=== PATIENT | female | born 1975 | race Caucasian/White ===

== ENCOUNTER → 2016-09-15 | Outpatient (CLI) | payer BC ==
[~2016-09-15] MED LIST: ASPI81TA82 PO; PRENCAP6 PO
== END ==
LOC: HPND 12:02
PROVIDERS: ATTEND Obstetrics & Gynecology
DX: O35.1XX0 Maternal care for (suspected) chromosomal abnormality in fetus, not applicable or unspecified (principal)
CPT/HCPCS: 76811

== ENCOUNTER → 2016-10-13 | Outpatient (CLI) | payer BC | LOC: HPND 09:27 | PROVIDERS: ATTEND Obstetrics & Gynecology | DX: O09.522 Supervision of elderly multigravida, second trimester (principal); O35.8XX0 Maternal care for other (suspected) fetal abnormality and damage, not applicable or unspecified; O28.3 Abnormal ultrasonic finding on antenatal screening of mother; Z3A.00 Weeks of gestation of pregnancy not specified | CPT/HCPCS: 59000; 76816; 76825; 76827; 76946; 93325 ==

== ENCOUNTER → 2016-11-10 | Outpatient (CLI) | payer BC | LOC: HPND 09:38 | PROVIDERS: ATTEND Obstetrics & Gynecology | DX: O43.192 Other malformation of placenta, second trimester (principal); O35.8XX0 Maternal care for other (suspected) fetal abnormality and damage, not applicable or unspecified; O09.522 Supervision of elderly multigravida, second trimester | CPT/HCPCS: 76816 ==

== ENCOUNTER → 2016-12-08 | Outpatient (CLI) | payer BC | LOC: HPND 09:02 | PROVIDERS: ATTEND Obstetrics & Gynecology | DX: O09.523 Supervision of elderly multigravida, third trimester (principal); O35.1XX0 Maternal care for (suspected) chromosomal abnormality in fetus, not applicable or unspecified; O28.0 Abnormal hematological finding on antenatal screening of mother; O43.193 Other malformation of placenta, third trimester | CPT/HCPCS: 76816 ==

== ENCOUNTER 2017-02-04 12:13 | Inpatient (IN) | payer BC ==
[2017-02-04] VITALS (51 sets, daily range): BP systolic 109–160; BP diastolic 52–93; PULSE 65–80; RESP 17–18; TEMP 98–99.1
[2017-02-04] MEDS ORDERED: LIDOCAINE HCL 1% 50 ML VIAL INFIL PRN (13:00)
[2017-02-04] MEDS ORDERED: MINERAL OIL 10 ML VIAL TOPICAL PRN (13:00)
[2017-02-04] MEDS ORDERED: LACTATED RINGER'S 1000 ML INJ 1,000 ML IV PRN (13:00)
[2017-02-04] MEDS ORDERED: SODIUM CHLORID 0.9% 500 ML INJ 500 ML IV PRN (13:00)
[2017-02-04] MEDS ORDERED: OXYTOCIN 30 UNITS-500ML PREMIX 500 ML IV SCH (13:00)
[2017-02-04] MEDS ORDERED: CITRIC ACID-SODIUM CITRATE LIQ 30 ML UDC PO SCH (13:00)
[2017-02-04] MEDS ORDERED: LIDOCAINE HCL 1% 50 ML VIAL I-DERMAL PRN (13:00)
[2017-02-04] MEDS ORDERED: OXYTOCIN 30 UNITS-500ML PREMIX 500 ML IV ONE (13:00)
[2017-02-04] MEDS: LACTATED RINGER'S 1000 ML INJ 1,000 ML IV SCH ×3 (13:00→23:48)
--- NOTE | 2017-02-04 13:09 | HHI.HP ---
HPI Chief Complaint Induction for oligo Date Seen: Feb 04, 2017 Time Seen: 13:00 Travel History International Travel<30 Days: No Contact w/Intl Traveler<30Days: No Known Affected Area: No History of Present Illness HPI 41 yo at 38 weeks induction with ENMANUEL at 3.6. She is doing well Weeks Gestation: 38 Para: 1 : 2 Last Menstrual Period: Feb 04, 2017 History Past Medical History Medical History: Denies Significant Hx Past Surgical History Surgical History: No Previous Surgery Family History Family History: Negative Social History Alcohol Use: No Tobacco Use: No Substance Abuse: No Allergies-Medications (Allergen,Severity, Reaction): Coded Allergies: No Known Allergies (Unverified Adverse Reaction, Unknown, 02/04/17) Home Meds Reported Medications Aspirin (Aspir-81) 81 Mg Tab, 81 MG PO DAILY, TAB 07/10/15 Mv & Min W/Fe Fumarat ( 1) Cap, 1 CAP PO DAILY, CAP 07/10/15 Review of Systems Except as stated in HPI: all other systems reviewed are Neg Physical Exam Narrative GENERAL: Well-nourished, well-developed patient. SKIN: Warm and dry. HEAD: Normocephalic and atraumatic. EYES: No scleral icterus. No injection or drainage. ENT: No nasal drainage noted. Mucous membranes pink. Airway patent. NECK: Supple, trachea midline. No JVD. CARDIOVASCULAR: Regular rate and rhythm without murmurs, gallops, or rubs. RESPIRATORY: Breath sounds equal bilaterally. No accessory muscle use. BREASTS: Bilateral exam showed no masses , no retractions, no nipple discharge. ABDOMEN/GI: Abdomen soft, non-tender, bowel sounds present, no rebound, no guarding Gravid to 38 weeks size Fundal Height: [-] GENITOURINARY: External Genitalia: intact and normal in appearance BUS glands: [-] Cervix: [-] Dilatation: 2 Effacement: 80 Station: [-] Presentation: vtx Membranes: [intact Uterine Contractions: [-] FHT's: Category: 1 Baseline: [-] Reactive: [-] Variability: [-] Decels: [-] EXTREMITIES: No cyanosis or edema. BACK: Nontender without obvious deformity. No CVA tenderness. NEUROLOGICAL: Awake and alert. Motor and sensory grossly within normal limits. Five out of 5 muscle strength in all muscle groups. Normal speech. Caprini VTE Risk Assessment Caprini VTE Risk Assessment: No/Low Risk (score <= 1) Caprini Risk Assessment Model Point Value = 1 Point Value = 2 Point Value = 3 Point Value = 5 Age 41-60 Minor surgery BMI > 25 kg/m2 Swollen legs Varicose veins or History of unexplained or recurrent spontaneous Oral contraceptives or hormone replacement Sepsis (< 1 month) Serious lung disease, including pneumonia (< 1 month) Abnormal pulmonary function Acute myocardial infarction Congestive heart failure (< 1 month) History of inflammatory bowel disease Medical patient at bed rest Age 61-74 Arthroscopic surgery Major open surgery (> 45 min) Laparoscopic surgery (> 45 min) Malignancy Confined to bed (> 72 hours) Immobilizing plaster cast Central venous access Age >= 75 History of VTE Family history of VTE Factor V Leiden Prothrombin [id number] Lupus anticoagulant Anticardiolipin antibodies Elevated serum homocysteine Heparin-induced thrombocytopenia Other congenital or acquired thrombophilia Stroke (< 1 month) Elective arthroplasty Hip, pelvis, or leg fracture Acute spinal cord injury (< 1 month) Prophylaxis Regimen Total Risk Factor Score Risk Level Prophylaxis Regimen 0-1 Low Early ambulation 2 Moderate Order ONE of the following: *Sequential Compression Device (SCD) *Heparin 5000 units SQ BID 3-4 Higher Order ONE of the following medications: *Heparin 5000 units SQ TID *Enoxaparin/Lovenox 40 mg SQ daily (WT < 150 kg, CrCl > 30 mL/min) *Enoxaparin/Lovenox 30 mg SQ daily (WT < 150 kg, CrCl > 10-29 mL/min) *Enoxaparin/Lovenox 30 mg SQ BID (WT < 150 kg, CrCl > 30 mL/min) AND/OR *Sequential Compression Device (SCD) 5 or more Highest Order ONE of the following medications: *Heparin 5000 units SQ TID (Preferred with Epidurals) *Enoxaparin/Lovenox 40 mg SQ daily (WT < 150 kg, CrCl > 30 mL/min) *Enoxaparin/Lovenox 30 mg SQ daily (WT < 150 kg, CrCl > 10-29 mL/min) *Enoxaparin/Lovenox 30 mg SQ BID (WT < 150 kg, CrCl > 30 mL/min) AND *Sequential Compression Device (SCD) Data Data Vital Signs Reviewed: Yes Orders Orders Admit To Inpatient (02/04/17 ) Code Status (02/04/17 13:00) Vital Signs (Adult) .Per protocol (02/04/17 13:00) Heart (02/04/17 13:00) Amnioinfusion (02/04/17 13:00) Urinary Catheter Management .ONCE (02/04/17 13:00) Diet Liquid (02/04/17 Lunch) Lactated Ringer's 1000 Ml Inj (Lr 1000 M (02/04/17 13:00) Lactated Ringer's 1000 Ml Inj (Lr 1000 M (02/04/17 13:00) Sodium Chlorid 0.9% 500 Ml Inj (Ns 500 M (02/04/17 13:00) Sodium Chlor 0.9% 1000 Ml Inj (Ns 1000 M (02/04/17 13:20) Lidocaine 1% Inj (50 Ml) (Xylocaine 1% I (02/04/17 13:00) Citric Acid-Sodium Citrate Liq (Bicitra (02/04/17 13:00) Fentanyl Inj (Fentanyl Inj) (02/04/17 13:00) Fentanyl Inj (Fentanyl Inj) (02/04/17 13:00) Complete Blood Count With Diff (02/04/17 13:00) Hold Clot (02/04/17 13:00) Abo/Rh Blood Type (02/04/17 13:00) Urinalysis - C+S If Indicated (02/04/17 13:00) Drug Screen, Random Urine (02/04/17 13:00) Resp Oxygen Non Rebreathe Mask (02/04/17 ) ^ Epidural / Intrathecal Infus (02/04/17 13:00) Oxytocin 30 Units-500ml Premix (Pitocin (02/04/17 13:00) Lidocaine 1% Inj (50 Ml) (Xylocaine 1% I (02/04/17 13:00) Light Mineral Oil (Muri-Lube Oil) (02/04/17 13:00) Inpatient Certification (02/04/17 ) Specimen To Be Collected PRN (02/04/17 13:00) Specimen To Be Collected PRN (02/04/17 13:00) ^ Non Stress Test (02/04/17 13:00) Response To Medication .Post New Med Administration, Reaction (02/04/17 13:00) ^ Discontinue Medication (02/04/17 13:00) Oxytocin 30 Units-500ml Premix (Pitocin (02/04/17 13:00) Group B Strep: Negative Assessment/Plan Problem List: (1) 38 weeks gestation of ICD Codes: Z3A.38 - 38 weeks gestation of (2) Oligohydramnios ICD Codes: O41.00X0 - Oligohydramnios, unspecified trimester, not applicable or unspecified Julius Diaz MD Feb 04, 2017 13:09
[2017-02-04 13:20] LABS: AUTOMATED NEUTROPHIL # 7.4 TH/MM3 (1.8-7.7); BASOPHIL % 0.3 % (0.0-2.0); EOSINOPHIL # 0.1 TH/MM3 (0-0.4); EOSINOPHIL % 0.8 % (0.0-4.0); HEMATOCRIT 30.7 % (35.0-46.0); HEMOGLOBIN 10.8 GM/DL (11.6-15.3); LYMPH % 21.1 % (9.0-44.0); LYMPHOCYTE # 2.2 TH/MM3 (1.0-4.8); MEAN CELL VOLUME 91.4 FL (80.0-100.0); MEAN CORPUSCULAR HGB CONC 35.1 % (32.0-36.0); MEAN PLATELET VOLUME 7.9 FL (7.0-11.0); MONOCYTE # 0.5 TH/MM3 (0-0.9); NEUT % 72.8 % (16.0-70.0); PLATELET COUNT 265 TH/MM3 (150-450); RED BLOOD COUNT 3.36 MIL/MM3 (4.00-5.30); RED CELL DISTRIBUTION WIDTH 14.4 % (11.6-17.2); WHITE BLOOD COUNT 10.2 TH/MM3 (4.0-11.0)
[2017-02-04] MEDS ORDERED: SODIUM CHLOR 0.9% 1000 ML INJ 1,000 ML IV PRN (13:20)
[2017-02-04 13:21] LABS: BACTERIA, URINE OCC /hpf; BILIRUBIN, URINE NEG (NEG); BLOOD, URINE NEG (NEG); GLUCOSE,URINE NEG (NEG); KETONE, URINE NEG (NEG); MUCUS URINE FEW /lpf (OCC); NITRITE,URINE NEG (NEG); SQUAMOUS EPITHELIAL CELL URINE 5 /hpf (0-5); URINE COLOR LIGHT-YELLOW (YELLW/STRAW); URINE LEUKOCYTE ESTERASE LARGE (NEG)
--- NOTE | 2017-02-04 19:31 | PD.LABORPN ---
Subjective Subjective doing well Objective Vital Signs Vital Signs Date Time Temp Pulse Resp B/P (MAP) Pulse Ox O2 Delivery O2 Flow Rate FiO2 02/04/17 19:11 18 02/04/17 19:00 75 137/81 (99) 02/04/17 18:30 71 141/74 (96) 02/04/17 18:00 67 142/80 (100) 02/04/17 17:56 80 155/90 (111) 02/04/17 17:30 77 143/78 (99) 02/04/17 17:14 98.5 18 02/04/17 17:00 77 136/81 (99) 02/04/17 16:42 17 02/04/17 16:31 78 160/92 (114) 02/04/17 16:00 75 158/89 (112) 02/04/17 15:31 73 150/81 (104) 02/04/17 15:15 18 02/04/17 15:12 71 147/93 (111) 02/04/17 14:45 18 02/04/17 13:30 18 02/04/17 13:16 74 143/82 (102) 02/04/17 13:15 99.1 Objective Pelvic Exam: Cervix: [-] Dilatation: 3 Effacement: 70 Station: [-] Presentation: vtx Membranes AROM Uterine Contractions: 2-4 FHT's: Category: 1 Baseline: [-] Reactive: [-] Variability: [-] Decels: [-] Weeks Gestation: 38 Gest Age Assessed Date: Feb 04, 2017 Assessment/Plan Problem List: (1) 38 weeks gestation of ICD Codes: Z3A.38 - 38 weeks gestation of (2) Oligohydramnios ICD Codes: O41.00X0 - Oligohydramnios, unspecified trimester, not applicable or unspecified Julius Diaz MD Feb 04, 2017 19:31
[2017-02-04] MEDS ORDERED: fentaNYL 2MCG-BUPIV 0.125% INJ 100 ML ONE (19:54)
[2017-02-05] VITALS (22 sets, daily range): BP systolic 104–156; BP diastolic 57–93; PULSE 58–88; RESP 16–18; TEMP 97.8–98.3; O2SAT 99
--- NOTE | 2017-02-05 01:14 | PD.OB.DELI ---
Weeks gestation: 38 Gest age assessed date: Feb 04, 2017 Pt started active labor?: Yes Active labor start date: Feb 04, 2017 Active labor start time: 13:00 Medical induction start date: Feb 05, 2017 Medical induction start time: 13:00 Artificial rupture of membrane: Yes Anesthesia: Epidural Episiotomy: None Vaginal Delivery: Normal, Spontaneous Presentation: Occiput anterior Nuchal Cord: x1 Delayed cord clamping (45 sec): Yes : Female, Single Delivery date: Feb 05, 2017 Delivery time: 00:50 One Minute : 8 Five Minute : 9 Placenta: Spontaneous delivery, Intact, 3 vessel cord Laceration: Vaginal laceration, 1 deg Repair: Chromic interrupted Julius Diaz MD Feb 05, 2017 01:14
[2017-02-05] MEDS ORDERED: DOCUSATE SODIUM 50 MG/SENNA 8.6 MG TAB PO PRN (01:15)
[2017-02-05] MEDS ORDERED: BENZOCAINE 20% TOPICAL SPRAY 60 ML CAN TOPICAL PRN (01:15)
[2017-02-05] MEDS ORDERED: SODIUM CHLORIDE 0.9% FLUSH 10 ML FLUSH IV FLUSH SCH (01:15)
[2017-02-05] MEDS ORDERED: ZOLPIDEM TARTRATE 5 MG TAB PO PRN (01:15)
[2017-02-05] MEDS ORDERED: WITCH HAZEL 50%/GLYCERIN 12.5% 40 PAD JAR TOPICAL PRN (01:15)
[2017-02-05] MEDS ORDERED: SODIUM CHLORIDE 0.9% FLUSH 10 ML FLUSH IV FLUSH PRN (01:15)
[2017-02-05] MEDS ORDERED: ONDANSETRON ODT 4 MG TAB PO PRN (01:15)
[2017-02-05] MEDS ORDERED: ACETAMINOPHEN 325 MG TAB PO PRN (01:15)
[2017-02-05] MEDS ORDERED: OXYTOCIN 30 UNITS-500ML PREMIX 500 ML IV SCH (01:15)
[2017-02-05] MEDS ORDERED: ALUMINUM/MAGNESIUM/SIMETH 30 ML CUP PO PRN (01:15)
[2017-02-05] MEDS ORDERED: oxyCODONE/ACETAMINOPHEN 5 MG/325 MG TAB PO PRN ×2 (01:15)
[2017-02-05] MEDS: IBUPROFEN 800 MG TAB PO PRN ×3 (02:48→22:31)
--- NOTE | 2017-02-05 10:10 | HHI.OB ---
Subjective Post Day: 1 Remarks doing well Objective Vitals/I&O Vital Signs Date Time Temp Pulse Resp B/P (MAP) Pulse Ox O2 Delivery O2 Flow Rate FiO2 02/05/17 08:00 97.9 58 18 99 02/05/17 08:00 114/67 (83) 02/05/17 05:35 98.3 83 18 104/57 (73) 02/05/17 04:30 69 16 125/72 (89) 02/05/17 04:30 97.8 02/05/17 03:05 98.0 02/05/17 03:00 71 133/62 (85) 02/05/17 02:55 18 02/05/17 02:45 77 124/67 (86) 02/05/17 02:30 67 142/73 (96) 02/05/17 02:23 18 02/05/17 02:15 69 136/93 (107) 02/05/17 01:38 68 142/85 (104) 02/05/17 01:22 18 02/05/17 01:15 88 141/84 (103) 02/05/17 00:50 86 02/05/17 00:46 156/81 (106) 02/05/17 00:40 72 02/05/17 00:30 141/78 (99) 02/05/17 00:30 97.9 18 02/05/17 00:25 74 02/05/17 00:16 68 127/71 (89) 02/05/17 00:10 72 02/05/17 00:00 98.1 02/05/17 00:00 18 02/05/17 00:00 145/73 (97) 02/04/17 23:55 69 02/04/17 23:50 70 02/04/17 23:46 109/66 (80) 02/04/17 23:40 74 02/04/17 23:30 18 02/04/17 23:30 126/72 (90) 02/04/17 23:25 73 02/04/17 23:16 115/83 (94) 02/04/17 23:05 65 02/04/17 23:00 134/74 (94) 02/04/17 23:00 18 02/04/17 22:55 65 02/04/17 22:45 131/69 (89) 02/04/17 22:40 65 02/04/17 22:30 18 02/04/17 22:30 98.0 02/04/17 22:30 135/75 (95) 02/04/17 22:25 65 02/04/17 22:15 65 129/70 (89) 02/04/17 22:10 67 02/04/17 22:00 126/67 (86) 02/04/17 21:57 18 02/04/17 21:55 71 02/04/17 21:50 127/72 (90) 02/04/17 21:45 18 02/04/17 21:40 71 02/04/17 21:40 120/70 (87) 02/04/17 21:25 74 02/04/17 21:21 119/52 (74) 02/04/17 21:15 18 02/04/17 21:13 77 131/64 (86) 02/04/17 21:10 131/65 (87) 02/04/17 21:08 133/71 (91) 02/04/17 20:58 71 02/04/17 20:58 137/76 (96) 02/04/17 20:55 140/83 (102) 02/04/17 20:30 72 144/88 (106) 02/04/17 20:01 68 02/04/17 20:01 150/81 (104) 02/04/17 19:54 18 02/04/17 19:45 98.0 18 02/04/17 19:30 67 148/85 (106) 02/04/17 19:11 18 02/04/17 19:00 75 137/81 (99) 02/04/17 18:30 71 141/74 (96) 02/04/17 18:00 67 142/80 (100) 02/04/17 17:56 80 155/90 (111) 02/04/17 17:30 77 143/78 (99) 02/04/17 17:14 98.5 18 02/04/17 17:00 77 136/81 (99) 02/04/17 16:42 17 02/04/17 16:31 78 160/92 (114) 02/04/17 16:00 75 158/89 (112) 02/04/17 15:31 73 150/81 (104) 02/04/17 15:15 18 02/04/17 15:12 71 147/93 (111) 02/04/17 14:45 18 02/04/17 13:30 18 02/04/17 13:16 74 143/82 (102) 02/04/17 13:15 99.1 Objective Remarks GENERAL: Well-nourished, well-developed patient. ABDOMEN/GI: Abdomen soft, non-tender. Fundus: Firm, non-tender at umbilicus. GENITOURINARY: Light to moderate bleeding. EXTREMITIES: No cyanosis or edema, non-tender, without signs of DVT. Medications and IVs Current Medications Medications (Trade) Dose Ordered Sig/Marcy Route Start Time Stop Time Status Last Admin (NS Flush) 2 ml BID IV FLUSH 02/05/17 01:15 02/05/17 01:15 (NS Flush) 2 ml UNSCH PRN IV FLUSH 02/05/17 01:15 (Tylenol) 650 mg Q4H PRN PO 02/05/17 01:15 (Motrin) 800 mg Q8H PRN PO 02/05/17 01:15 02/05/17 02:48 (Percocet 5-325 Mg) 1 tab Q4H PRN PO 02/05/17 01:15 (Percocet 5-325 Mg) 2 tab Q4H PRN PO 02/05/17 01:15 (Americaine 20% Top Spr) 1 spray Q4H PRN TOPICAL 02/05/17 01:15 (Tucks Pads) 1 applic QID PRN TOPICAL 02/05/17 01:15 (Monica-Colace) 2 tab Q12H PRN PO 02/05/17 01:15 (Ambien) 5 mg HS PRN PO 02/05/17 01:15 (M-M-R Ii Inj) 0.5 ml ONCE ONCE SQ 02/05/17 16:00 02/05/17 16:01 (Boostrix Inj) 0.5 ml ONCE ONCE IM 02/05/17 16:00 02/05/17 16:01 (Mag-Al Plus Susp Liq) 15 ml Q8H PRN PO 02/05/17 01:15 (Zofran Odt) 4 mg Q6H PRN PO 02/05/17 01:15 Assessment/Plan Problem List: (1) 38 weeks gestation of ICD Codes: Z3A.38 - 38 weeks gestation of (2) Oligohydramnios ICD Codes: O41.00X0 - Oligohydramnios, unspecified trimester, not applicable or unspecified (3) Spontaneous vaginal delivery ICD Codes: O80 - Encounter for full-term uncomplicated delivery Status: Acute Julius Diaz MD Feb 05, 2017 10:10
--- NOTE | 2017-02-05 10:10 | HHI.DCPOC ---
Discharge Care Plan Diagnosis: (1) Spontaneous vaginal delivery Report Symptoms to Your Doctor -Temperature above 100.5 degrees -Redness, of incision or excessive or foul smelling drainage -Unusual pain or calf pain -Increased vaginal bleeding -Painful or difficulty urinating -Feelings of extreme sadness or anxiety after 2 weeks Goals to Promote Your Health * To prevent worsening of your condition and complications * To maintain your health at the optimal level Directions to Meet Your Goals Take your medications as prescribed Follow your dietary instruction Follow activity as directed Ensure plenty of rest for recovery Drink fluids for hydration Keep your appointments as scheduled Take your immunizations and boosters as scheduled If your symptoms worsen call your PCP, if no PCP go to Urgent Care Center or Emergency Room Smoking is Dangerous to Your Health. Avoid second hand smoke Call the 24-hour crisis hotline for domestic abuse at Julius Diaz MD Feb 05, 2017 10:10
[2017-02-05] MEDS ORDERED: OXYC1TAB63 PO (10:12)
[2017-02-05] MEDS ORDERED: DIPHTH/TETANUS/ACEL PERTUSSIS (BOOSTER) 0.5 ML VIAL/PFS IM ONE (16:00)
[2017-02-05] MEDS ORDERED: MEASLES, MUMPS, RUBELLA VACCINE 0.5 ML VIAL SQ ONE (16:00)
[2017-02-06 07:27] VITALS: BP 133/81; PULSE 61; RESP 18; TEMP 97.7
[2017-02-06] MEDS: IBUPROFEN 800 MG TAB PO PRN (07:27)
--- NOTE | 2017-02-06 10:22 | HHI.OB ---
Subjective Post Day: 1 Remarks doing well Objective Vitals/I&O Vital Signs Date Time Temp Pulse Resp B/P (MAP) Pulse Ox O2 Delivery O2 Flow Rate FiO2 02/06/17 07:27 61 18 133/81 (98) 02/06/17 07:27 97.7 02/05/17 20:00 69 126/69 (88) 02/05/17 20:00 98.2 18 99 Objective Remarks GENERAL: Well-nourished, well-developed patient. ABDOMEN/GI: Abdomen soft, non-tender. Fundus: Firm, non-tender at umbilicus. GENITOURINARY: Light to moderate bleeding. EXTREMITIES: No cyanosis or edema, non-tender, without signs of DVT. Medications and IVs Current Medications Medications (Trade) Dose Ordered Sig/Marcy Route Start Time Stop Time Status Last Admin (NS Flush) 2 ml BID IV FLUSH 02/05/17 01:15 02/05/17 01:15 (NS Flush) 2 ml UNSCH PRN IV FLUSH 02/05/17 01:15 (Tylenol) 650 mg Q4H PRN PO 02/05/17 01:15 (Motrin) 800 mg Q8H PRN PO 02/05/17 01:15 02/06/17 07:27 (Percocet 5-325 Mg) 1 tab Q4H PRN PO 02/05/17 01:15 (Percocet 5-325 Mg) 2 tab Q4H PRN PO 02/05/17 01:15 (Americaine 20% Top Spr) 1 spray Q4H PRN TOPICAL 02/05/17 01:15 02/05/17 12:02 (Tucks Pads) 1 applic QID PRN TOPICAL 02/05/17 01:15 02/05/17 12:01 (Monica-Colace) 2 tab Q12H PRN PO 02/05/17 01:15 (Ambien) 5 mg HS PRN PO 02/05/17 01:15 (Mag-Al Plus Susp Liq) 15 ml Q8H PRN PO 02/05/17 01:15 (Zofran Odt) 4 mg Q6H PRN PO 02/05/17 01:15 Assessment/Plan Problem List: (1) 38 weeks gestation of ICD Codes: Z3A.38 - 38 weeks gestation of (2) Oligohydramnios ICD Codes: O41.00X0 - Oligohydramnios, unspecified trimester, not applicable or unspecified (3) Spontaneous vaginal delivery ICD Codes: O80 - Encounter for full-term uncomplicated delivery Status: Julius Romeo MD Feb 06, 2017 10:22
--- NOTE | 2017-02-06 10:25 | HHI.DS ---
Admission Date Feb 04, 2017 at 12:13 Discharge Date: Feb 06, 2017 Admitting Diagnosis Diagnosis: (1) Spontaneous vaginal delivery ICD Codes: O80 - Encounter for full-term uncomplicated delivery Status: Acute Delivery Date: Feb 05, 2017 Vaginal Delivery: Normal, Spontaneous Infant: Female, Single Brief History 41 yo at 38 weeks induction with ENMANUEL at 3.6. She is doing well Hospital Course doing well after desires DC home Pt Condition on Discharge: Good Discharge Disposition: Discharge Home Discharge Instructions Diet Instructions: As Tolerated, No Restrictions Activities You Can Perform: Regular-No Restrictions, Pelvic Rest Activities to Avoid: Driving for 24 hrs Follow up Referrals: [facility] - 2 Weeks @ [facility] with Julius Diaz MD New Medications: Oxycodone HCl/Acetaminophen (Oxycodone-Acetaminophen 5-325) 5 Mg-325 Mg Tablet 1 TAB PO Q4H PRN for PAIN SCALE 3 TO 5, #20 TAB Continued Medications: Aspirin (Aspir-81) 81 Mg Tab 81 MG PO DAILY, TAB Mv & Min W/Fe Fumarat ( 1) 30 Mg-975 Mcg-200 Mg Cap 1 CAP PO DAILY, CAP Julius Diaz MD Feb 06, 2017 10:24
== END 2017-02-06 12:00 | disposition home or self-care (01) | DRG 775 ==
LOC: H2EA 12:13 → H1EA 02-05 03:41
PROVIDERS: ADMIT Obstetrics & Gynecology; ATTEND Obstetrics & Gynecology
PROC: 3E033VJ Introduction of Other Hormone into Peripheral Vein, Percutaneous Approach (ICD-10-PCS; 2017-02-04)
PROC: 10907ZC Drainage of Amniotic Fluid, Therapeutic from Products of Conception, Via Natural or Artificial Opening (ICD-10-PCS; 2017-02-04)
PROC: 10E0XZZ Delivery of Products of Conception, External Approach (ICD-10-PCS; principal; 2017-02-05)
PROC: 0HQ9XZZ Repair Perineum Skin, External Approach (ICD-10-PCS; 2017-02-05)
DX: O41.03X0 Oligohydramnios, third trimester, not applicable or unspecified (principal); O71.4 Obstetric high vaginal laceration alone; O69.81X0 Labor and delivery complicated by cord around neck, without compression, not applicable or unspecified; Z37.0 Single live birth; Z3A.38 38 weeks gestation of pregnancy
CPT/HCPCS: 76816; 76818; 76820; 80307; 81001; 85025; 86900; 86901; J2590; J3010; J7120